=== PATIENT | female | born 1990 | race American Indian/Alaskan Native ===

== ENCOUNTER 2020-01-05 16:04 | Emergency (ER) | payer BC ==
[2020-01-05 16:12] VITALS: BP 149/104
[2020-01-05] MEDS ORDERED: ALBUTEROL 2.5 MG/3 ML NEBU IH ONE (16:50)
[2020-01-05] MEDS ORDERED: predniSONE 20 MG TAB PO ONE (16:51)
== END 2020-01-05 22:30 | disposition left against medical advice (07) ==
LOC: ED 16:04
DX: R07.9 Chest pain, unspecified (principal); Z53.21 Procedure and treatment not carried out due to patient leaving prior to being seen by health care provider
CPT/HCPCS: 71045; 93005; 94644; J7512